=== PATIENT | female | born 1980 | race Caucasian/White ===

== ENCOUNTER 2016-10-05 00:12 | Emergency (ER) | payer BC ==
--- NOTE | 2016-10-05 06:48 | ER ---
ADMIT: 10/05/2016 RM/LOC: [facility] MR#: [id number] 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 Camacho with negative ultrasound, blood work, and urine. No family history of renal colic. Exam remarkable for nontoxic, afebrile female, slightly obese. CT abdomen, negative for diverticulitis or renal obstruction. Urinalysis does show 7 rbc's, otherwise negative dip. Negative . Follow up with Dr. Camacho as needed. Rashid King MD/ ashley JOB #: [id number] CC: Rashid King MD, Attending Physician Alexandria Camacho MD
== END 2016-10-05 02:36 | disposition home or self-care (01) ==
LOC: ER 00:12
DX: N23 Unspecified renal colic (principal); I10 Essential (primary) hypertension; Z90.49 Acquired absence of other specified parts of digestive tract; Z79.899 Other long term (current) drug therapy